=== PATIENT | female | born 1995 | race American Indian/Alaskan Native ===

== ENCOUNTER 2019-06-17 11:37 | Emergency (ER) | payer OTHER ==
[2019-06-17 11:49] VITALS: BP 109/67
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
[2019-06-17 13:00] LABS: HCG Qualitative,Urine Negative (Negative)
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
== END 2019-06-17 14:33 | disposition home or self-care (01) ==
LOC: ED 11:37
DX: S20.20XA Contusion of thorax, unspecified, initial encounter (principal); S40.012A Contusion of left shoulder, initial encounter; F12.10 Cannabis abuse, uncomplicated; Z79.899 Other long term (current) drug therapy; V49.49XA Driver injured in collision with other motor vehicles in traffic accident, initial encounter; Y93.89 Activity, other specified; Y92.410 Unspecified street and highway as the place of occurrence of the external cause; Y99.8 Other external cause status
CPT/HCPCS: 72070; 81025; 99283